=== PATIENT | male | born 1985 | race Hispanic/Latino ===

== ENCOUNTER 2017-09-22 13:45 | Emergency (ER) | payer SELFPAY ==
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
== END 2017-09-22 15:24 | disposition home or self-care (01) ==
LOC: ERS 13:45
DX: M54.2 Cervicalgia (principal); S01.81XA Laceration without foreign body of other part of head, initial encounter; V89.2XXA Person injured in unspecified motor-vehicle accident, traffic, initial encounter
CPT/HCPCS: 70450; 71045; 72125